=== PATIENT | female | born 1990 | race Two or more races ===

== ENCOUNTER → 2021-11-23 | Outpatient (CLI) | payer BC ==
[2021-11-23 10:25] LABS: Urine Bacteria NONE SEEN /hpf (None Seen); Urine Blood 1+ /uL (Negative); Urine Mucus FEW (None Seen); Urine Specific Gravity 1.027 (1.001-1.035); Urine WBC 1 /hpf (0 - 5)
[2021-11-23 12:36] LABS: Basophils # (auto) 0.1 10 ^3/uL (0-0.2); Basophils % (auto) 1.7 % (0.0-2.0); Eosinophils # (auto) 0.1 10 ^3/uL (0-0.8); Eosinophils % (auto) 0.9 % (0.0-7.0); Hematocrit 39.3 % (36.0-46.0); Hemoglobin 13.1 g/dL (12.2-16.2); Lymphocytes # (auto) 1.3 10 ^3/uL (0.4-5.4); Lymphocytes % (auto) 21.6 % (10.0-50.0); Mean Corpuscular Hemoglobin 30.8 pg (28.0-32.0); Mean Corpuscular Hgb Conc. 33.3 g/dL (32.0-36.0); Mean Corpuscular Volume 92.7 fL (80.0-100.0); Monocytes # (auto) 0.4 10 ^3/uL (0-1.3); Monocytes % (auto) 6.8 % (0.0-12.0); Neutrophils # (auto) 4.2 10 ^3/uL (1.6-8.6); Nucleated Red Blood Cells % 0.1 %; Red Blood Cells 4.25 10^6/uL (4.0-5.20); Red Cell Distribution Width 12.9 % (11.8-14.3); White Blood Cell 6.1 10^3/uL (4.4-10.8)
[2021-11-23 12:53] LABS: Free T4 (Free Thyroxine) 1.13 ng/dL (0.89-1.76)
[2021-11-23 12:54] LABS: Follicle Stimulating Hormone 7.04 IU/L (SEE BELOW); Leuteinizing Hormone 9.1 IU/L
[2021-11-23 12:59] LABS: Potassium 3.8 mmol/L (3.5-5.1)
[2021-11-23 13:12] LABS: Albumin 3.9 g/dL (3.4-5.0); BUN/Creatinine Ratio 21.4; Bilirubin, Total 0.7 mg/dL (0.2-1.0); Calcium 8.9 mg/dL (8.5-10.1); Total Protein 7.8 g/dL (6.4-8.2)
== END | disposition home or self-care (01) ==
LOC: LAB 09:36
PROVIDERS: ATTEND Student in an Organized Health Care Education/Training Program
DX: R73.9 Hyperglycemia, unspecified (principal); N92.6 Irregular menstruation, unspecified
CPT/HCPCS: 36415; 80053; 80061; 81001; 83001; 83002; 83036; 84403; 84439; 84443; 85025

== ENCOUNTER 2025-06-08 15:49 | Emergency (ER) | payer BC ==
[~2025-06-08] VITALS: Ht 160 cm; Wt 81.0 kg
[2025-06-08 15:55] VITALS: TEMP 99
[2025-06-08 17:22] LABS: Urine Protein, UAD TRACE (Negative)
--- NOTE | 2025-06-08 18:31 | DVH ---
EXAM: US PELVIC HISTORY: R suprapubic pain COMPARISON: None TECHNIQUE: Transabdominal and transvaginal imaging was utilized. Grayscale and color doppler evaluati on. Images were stored in the patient's permanent medical record. FINDINGS: UTERUS: 7.6 x 3.8 x 4.9 cm. Endometrial stripe: 0.6 cm. RIGHT OVARY: 3.1 x 2.2 x 3 cm.Normal vascularity. No suspicious masses or cysts. LEFT OVARY: 2.4 x 1.8 x 3.2 cm. Normal vascularity. No suspicious masses or cysts. OTHER: No free fluid is identified. IMPRESSION: 1. Unremarkable pelvic ultrasound.
[2025-06-08 18:44] VITALS: BP 131/74; PULSE 59; RESP 18; O2SAT 99
[2025-06-08] MEDS ORDERED: IBUP-1456 PO (19:08)
[2025-06-08] MEDS ORDERED: CYCL-837 PO (19:08)
--- NOTE | 2025-06-08 19:08 | ED.PDOC ---
Back pain HPI HPI Comments 34-year-old female presents to ER with complaints of back pain x1 week. Patient reports that she started experiencing right lower lumbar back pain one week ago. She rates her current pain an 8/10 to right lower lumbar region with radiation towards right lower pelvic region. States she has been taking ibuprofen for her pain without relief and presents to ER ambulatory on arrival, with steady gait, in no distress. Denies fever, body aches, chills, night sweats, numbness/tingling, nausea/vomiting, abdominal pain, extremity weakness, changes in urination/BM or any further symptoms/complaints Chief Complaint: Back Pain Time Seen by MD: 18:11 Primary Care Provider: UNKNOWN Reviewed Notes: Nurses Notes, Medications, Allergies Allergies: Coded Allergies: Prochlorperazine (Verified Allergy, Severe, 06/08/25) Home Meds Active Scripts Ibuprofen (Ibuprofen) 800 Mg Tab, 1 TAB PO TID PRN, #30 TAB 0 Refills Prov:MARIBELL SOLORIO 06/08/25 Cyclobenzaprine Hcl (Cyclobenzaprine Hcl) 5 Mg Tab, 1 TAB PO QHSP, #14 TAB 0 Refills Prov:MARIBELL SOLORIO 06/08/25 Information Source: Patient Mode of Arrival: Ambulatory Past Medical History PAST MEDICAL HISTORY: Denies Surgical History: Denies all surgeries 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: No Pertinent 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 Family History Family History: Unknown Social History Smoker: Non-Smoker Alcohol: Denies ETOH Use Drugs: Denies Drug Use Lives In: Home Constitutional: denies: chills, diaphoresis, fatigue, fever, malaise, sweats, weakness, others EENTM: denies: blurred vision, double vision, ear bleeding, ear discharge, ear drainage, ear pain, ear ringing, eye pain, eye redness, hearing loss, mouth pain, mouth swelling, nasal discharge, nose bleeding, nose congestion, nose pain, photophobia, tearing, throat pain, throat swelling, voice changes, others Respiratory: denies: cough, hemoptysis, orthopnea, SOB at rest, shortness of breath, SOB with excertion, stridor, wheezing, others Cardiovascular: denies: chest pain, dizzy spells, diaphoresis, Dyspnea on exertion, edema, irregular heart beat, left arm pain, lightheadedness, palpitations, PND, syncope, others Gastrointestinal: denies: abdomen distended, abdominal pain, blood streaked bowels, constipated, diarrhea, dysphagia, difficulty swallowing, hematemesis, melena, nausea, poor appetite, poor fluid intake, rectal bleeding, rectal pain, vomiting, others Genitourinary: denies: abnormal vagina bleeding, burning, dyspareunia, dysuria, flank pain, frequency, hematuria, incontinence, pain, , vagina discharge, urgency, others Neurological: denies: dizziness, fainting, headache, left sided numbness, left sided weakness, numbness, paresthesia, pre-existing deficit, right sided numbness, right sided weakness, seizure, speech problems, tingling, tremors, weakness, others Musculoskeletal: reports: others (As stated in HPI) Integumetry: denies: bruises, change in color, change in hair/nails, dryness, laceration, lesions, lumps, rash, wounds, others Allergic/Immunocompromised: denies: Difficulty Healing, Frequent Infections, Hives, Itching, others Hematologic/Lymphatic: denies: anemia, blood clots, easy bleeding, easy bruising, swollen glands, others Endocrine: denies: excessive hunger, excessive sweating, excessive thirst, excessive urination, flushing, intolerance to cold, intolerance to heat, unexplained weight gain, unexplained weight loss, others Psychiatric: denies: anxiety, bipolar disorder, depression, hopeless, panic disorder, schizophrenia, sleepless, suicidal, others Physical Exam General Appearance: No Apparent Distress HEENT: PERRL/EOMI Neck: Full Range of Motion, Non-Tender, Normal Respiratory: Chest Non-Tender, Lungs Clear, No Accessory Muscle Use, No Respiratory Distress, Normal Breath Sounds Cardiovascular: Bradycardia, No Murmur, No Gallop, Regular Rate/Rhythm Breast Exam: Deferred Gastrointestinal: No Organomegaly, No Pulsatile Mass, Normal Bowel Sounds, Soft, Other (Slight TTP to right lower pelvic region noted. No TTP to abdomen appreciated) Genitalia: Deferred Pelvic: Deferred Rectal: Deferred Extremities: Normal capillary refill, Normal range of motion Musculoskeletal : Extremity Location: Back (TTP to right lower lumbar paraspinals noted. No skin changes noted. No bony tenderness to spine appreciated) Neurologic: Alert, No Motor Deficits, Normal Affect, Normal Mood, No Sensory Deficits Cerebellar Function: Normal Reflexes: Normal Skin: Dry, Normal Color, Warm Lymphatic: No Adenopathy Was a procedure done? Was a procedure done?: No Sedation Sedation?: No Back Pain Differential Dx Differential Diagnosis: Fracture, Urolithiasis, Other (UTI, mass) X-Ray, Labs, Meds, VS Vital Signs Date Time Temp Pulse Resp B/P (MAP) Pulse Ox O2 Delivery O2 Flow Rate FiO2 06/08/25 18:44 59 18 99 Room Air 06/08/25 18:44 59 18 131/74 (93) 100 06/08/25 15:55 99.0 64 16 131/76 99 99.0 Lab Test 06/08/25 16:30 Range/Units Urine Color Yellow Yellow Urine Clarity Clear Clear Urine pH 6.5 5.0-9.0 Urine Specific [place] 1.035 1.001-1.035 Urine Protein Trace H Negative Urine Ketones Negative Negative Urine Blood Trace H Negative /uL Urine Nitrite Negative Negative Urine Bilirubin Negative Negative Urine Urobilinogen Normal Negative mg/dL Urine Leukocyte Esterase Negative Negative /uL Urine RBC 15 0 - 4 /hpf Urine Microscopic WBC 1 0-5 /HPF Urine Squamous Epithelial Cells Few <5 /hpf Urine Bacteria None seen None Seen /hpf Urine Mucus Few None Seen Urine Glucose Normal Normal mg/dL Urine Test Negative Negative Current Medications Medications (Trade) Dose Ordered Sig/Bebo Route Start Time Stop Time Status Last Admin Ketorolac Tromethamine (Toradol Injection) 60 mg ONCE ONCE IM 06/08/25 19:15 06/08/25 19:16 DC 06/08/25 19:09 PATIENT: NATALIIA VAZQUEZ: [id number]: [id number] : 1990 LOC: ER ROOM / BED: / AGE / SEX: 34 / F ADM STATUS: REG ER SERVICE [id number] ORDERING PHYSICIAN: CITLALY DE LEON NP PROCEDURE(s): PELUS - PELVIC REASON: R suprapubic pain ORDER NUMBER(s): [id number], ACCESSION NUMBER(s): [id number] EXAM: US PELVIC HISTORY: R suprapubic pain COMPARISON: None TECHNIQUE: Transabdominal and transvaginal imaging was utilized. Grayscale and color doppler evaluation. Images were stored in the patient's permanent medical record. FINDINGS: UTERUS: 7.6 x 3.8 x 4.9 cm. Endometrial stripe: 0.6 cm. RIGHT OVARY: 3.1 x 2.2 x 3 cm.Normal vascularity. No suspicious masses or cysts. LEFT OVARY: 2.4 x 1.8 x 3.2 cm. Normal vascularity. No suspicious masses or cysts. OTHER: No free fluid is identified. IMPRESSION: 1. Unremarkable pelvic ultrasound. ATED BY: MARIVEL WILLINGHAM MD DICTATED DATE/TIME: 06/08/251827 SIGNED BY: MARIVEL WILLINGHAM MD SIGNED DATE/TIME: 06/08/251827 CC: Pelvic ultrasound reviewed Urinalysis reviewed without any significant abnormalities Urine reviewed-negative Toradol 60 mg IM ordered Advised to follow up with PCP in 1-2 days Patient verbalized understanding and agreeable with current plan of care Advised to return to ER immediately if symptoms worsen Images Reviewed?: Images reviewed and evaluated by me Time of 1ST Reevaluation: 18:40 Reevaluation 1ST: N/A Patient Education/Counseling: Diagnosis, Treatment, Prognosis, Need For Follow Up Family Education/Counseling: No Family Present SEPSIS Sepsis Screen Date sepsis recognized/suspect: Jun 08, 2025 Time Sepsis recognized/suspect: 1558 Recent Procedure: No On Antibiotic Therapy: No Respiratory Rate >20: No Heart Rate >90: No Temp<36 C (96.8 F) or >38.3 C: No SBP <90 or MAP <65 mmHG: No New Acute Mental Status Change: No Is the patient on CPAP, BIPAP,: No Physician Orders Pelvic (06/08/25 17:32) Vital Signs Date Time Temp Pulse Resp B/P (MAP) Pulse Ox O2 Delivery O2 Flow Rate FiO2 06/08/25 18:44 59 18 99 Room Air 06/08/25 18:44 59 18 131/74 (93) 100 06/08/25 15:55 99.0 64 16 131/76 99 99.0 Medications Medications Dose Ordered Sig/Bebo Route Start Time Stop Time Status Last Admin Dose Admin Ketorolac Tromethamine 60 mg ONCE ONCE IM 06/08/25 19:15 06/08/25 19:16 DC 06/08/25 19:09 Departure 1 Departure Time of Disposition: 19:02 Impression: Primary Impression: Lumbar strain Qualified Codes: S39.012A - Strain of muscle, fascia and tendon of lower back, initial encounter Disposition: HOME / SELF CARE / HOMELESS Condition: Stable e-Prescriptions Ibuprofen (Ibuprofen) 800 Mg Tab 1 TAB PO TID PRN, #30 TAB 0 Refills Prov: MARIBELL SOLORIO 06/08/25 Cyclobenzaprine Hcl (Cyclobenzaprine Hcl) 5 Mg Tab 1 TAB PO QHSP, #14 TAB 0 Refills Prov: MARIBELL SOLORIO 06/08/25 Discharged With: Self Critical Care Note Critical Care Time?: No Stability Stability form required: No Heart Score Heart Score: Heart Score Response (Comments) Value History N/A 0 EKG N/A 0 Age N/A 0 Risk Factors N/A 0 Troponin N/A 0 Total 0 MARIBELL SOLORIO Jun 08, 2025 19:08
[2025-06-08] MEDS: KETOROLAC TROMETH 60MG/2ML VIAL IM ONE (19:09)
== END 2025-06-08 19:17 | disposition home or self-care (01) ==
LOC: ER 15:49
DX: S39.012A Strain of muscle, fascia and tendon of lower back, initial encounter (principal); Z79.899 Other long term (current) drug therapy; X58.XXXA Exposure to other specified factors, initial encounter; Y93.89 Activity, other specified; Y92.89 Other specified places as the place of occurrence of the external cause; Y99.8 Other external cause status
CPT/HCPCS: 76856; 81001; 81025; 96372; 99285; J1885